=== PATIENT | female | born 1960 | race Caucasian/White ===

== ENCOUNTER 2018-08-07 09:41 | Day surgery (SDC) | payer MEDICAID ==
[2018-08-07] MEDS ORDERED: IOHEXOL 0 ML IV ONE (10:29)
[2018-08-07] MEDS ORDERED: BUPIVACAINE /PF 0.25% 30 ML VIAL INJ ONE (10:30)
[2018-08-07] MEDS ORDERED: LIDOCAINE 2%, 20 ML MDV ONE (10:30)
[2018-08-07] MEDS ORDERED: LR 1,000 ML IV.SOLN IV ONE (10:30)
[2018-08-07] MEDS ORDERED: IOHEXOL 300 mgI/mL, 50 mL INFUS..BTL IV ONE (10:30)
[2018-08-07] MEDS ORDERED: methylPREDNISolone ACETATE 40 MG/ML ONE (10:30)
[2018-08-07] MEDS: MIDAZOLAM HCL 5 MG/5 ML VIAL ONE (11:28)
[2018-08-07] MEDS: DIPHENHYDRAMINE INJ 50 MG/ML VIAL ONE (11:30)
[2018-08-07 12:01] VITALS: BP_SYST 133
== END 2018-08-07 12:30 | disposition home or self-care (01) ==
LOC: SDS 09:41
PROVIDERS: ATTEND Internal Medicine
DX: M51.16 Intervertebral disc disorders with radiculopathy, lumbar region (principal); J45.909 Unspecified asthma, uncomplicated; I10 Essential (primary) hypertension; Z88.8 Allergy status to other drugs, medicaments and biological substances; M79.10 Myalgia, unspecified site
CPT/HCPCS: 62323; 76000; J1030; J1200; J2001; J2250; J3490; J7120; Q9967

== ENCOUNTER 2018-12-24 09:51 | Day surgery (SDC) | payer MEDICAID ==
[~2018-12-24] VITALS: Ht 157.5 cm; Wt 55.3 kg
[2018-12-24] MEDS ORDERED: methylPREDNISolone ACETATE 40 MG/ML IM ONE (09:52)
[2018-12-24] MEDS ORDERED: BUPIVACAINE /PF 0.25% 30 ML VIAL INJ ONE (09:52)
[2018-12-24] MEDS ORDERED: LIDOCAINE 2%, 20 ML MDV INJ ONE (09:52)
[2018-12-24] MEDS ORDERED: IOPAMIDOL 50 ML VIAL IV ONE (09:52)
[2018-12-24] MEDS ORDERED: MIDAZOLAM HCL 5 MG/5 ML VIAL ONE (12:15)
[2018-12-24] MEDS ORDERED: DIPHENHYDRAMINE INJ 50 MG/ML VIAL ONE (12:15)
[2018-12-24 12:25] VITALS: BP_SYST 149
== END 2018-12-24 13:20 | disposition home or self-care (01) ==
LOC: SDS 09:51 → SMU 10:28 → SDS 13:20
PROVIDERS: ATTEND Internal Medicine
DX: M51.16 Intervertebral disc disorders with radiculopathy, lumbar region (principal); J45.909 Unspecified asthma, uncomplicated; I10 Essential (primary) hypertension; Z79.899 Other long term (current) drug therapy; Z98.890 Other specified postprocedural states; Z88.8 Allergy status to other drugs, medicaments and biological substances
CPT/HCPCS: 62323; J1030; J1200; J2001; J2250; J3490; Q9967; 76000